=== PATIENT | female | born 2000 | race Caucasian/White ===

== ENCOUNTER 2022-04-17 10:15 | Emergency (ER) | payer SELFPAY ==
[2022-04-17] MEDS ORDERED: LIDOCAINE VISCOUS 2% SOLN 15 ML UDC ONE (10:37)
[2022-04-17] MEDS ORDERED: MAGNES/ALUMIN/SIMET 30ML UCUP ONE (10:37)
[2022-04-17] MEDS ORDERED: NA CHLORIDE 0.9% 1,000 ML ONE (10:38)
[2022-04-17] MEDS ORDERED: FAMOTIDINE 20 MG/2 ML VIAL IV ONE (10:38)
[2022-04-17 10:48] LABS: Urine Blood 1+ (Negative); Urine Glucose Negative (Negative); Urine Protein Negative (Negative); Urine Specific Gravity >=1.030 (1.005-1.030)
[2022-04-17 10:54] LABS: Absolute Lymphocytes (CBC) 2.8 K/uL (0.7-4.9); Hematocrit 36.5 % (36.0-45.0); MCV 83.9 fL (80-100); MPV 7.3 fL (7.6-11.3); RBC Red Blood Cell Count 4.35 M/uL (3.86-4.86)
[2022-04-17 11:28] LABS: Urine Bacteria <20 /HPF (<20); Urine Mucus 1+ /HPF (None Seen); Urine RBC <5 /HPF (None Seen)
[2022-04-17 12:30] LABS: Albumin 3.5 g/dL (3.4-5.0); Bilirubin Total 0.2 mg/dL (0.2-1.0); Potassium 3.7 mmol/L (3.5-5.1); Protein, Total 7.5 g/dL (6.4-8.2)
--- NOTE | 2022-04-17 12:56 | EDPHYS ---
Physician Documentation [facility] Name: Lakshmi Garcia Age: 21 yrs Sex: Female : 2000 Arrival Date: 04/17/2022 Time: 10:19 Bed 16 Private MD: ED Physician Eddie Parada HPI: 04/17 10:34 This 21 yrs old Female presents to ER via EMS with complaints of Abdominal Pain. ms3 10:34 The patient presents with abdominal pain in the epigastric area. ms3 10:34 Onset: The symptoms/episode began/occurred 5 day(s) ago. The symptoms do not radiate. ms3 Associated signs and symptoms: Pertinent negatives: nausea, vomiting, and diarrhea. The symptoms are described as sharp. Modifying factors: The symptoms are alleviated by nothing, the symptoms are aggravated by nothing. Severity of pain: At its worst the pain was moderate in the emergency department the pain is unchanged. 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 - Social history:: Smoking status: Patient reports the use of cigarette tobacco products, denies chronic smoking, but will smoke occasionally. ROS: 10:34 Constitutional: Negative for fever, and chills. Neck: Negative for injury, pain, and ms3 swelling, Cardiovascular: Negative for chest pain, and palpitations. Respiratory: Negative for shortness of breath, cough, wheezing, and pleuritic chest pain. 10:34 MS/Extremity: Negative for injury and deformity, Skin: Negative for injury, rash, and discoloration. 10:34 Abdomen/GI: Positive for abdominal pain. 10:34 All other systems are negative. Exam: 10:34 Constitutional: This is a well developed, well nourished patient who is awake, alert, ms3 and in no acute distress. Neck: Trachea midline, no cervical lymphadenopathy. Supple, full range of motion without nuchal rigidity, or vertebral point tenderness. No Meningismus. Chest/axilla: Normal chest wall appearance and motion. Nontender with no deformity. Cardiovascular: Regular rate and rhythm with a normal S1 and S2. No gallops, murmurs, or rubs. Normal PMI, no JVD. No pulse deficits. Respiratory: Lungs have equal breath sounds bilaterally, clear to auscultation and percussion. No rales, rhonchi or wheezes noted. No increased work of breathing, no retractions or nasal flaring. 10:34 Skin: Warm, dry with normal turgor. Normal color with no rashes, no lesions, and no evidence of cellulitis. MS/ Extremity: Pulses equal, no cyanosis. Neurovascular intact. Full, normal range of motion. Psych: Awake, alert, with orientation to person, place and time. Behavior, mood, and affect are within normal limits. 10:34 Abdomen/GI: Inspection: abdomen appears normal, Bowel sounds: normal, Palpation: mild abdominal tenderness, in the epigastric area. Vital Signs: 10:19 BP 121 / 69; Pulse 60; Resp 12 S; Temp 97.8(A); Pulse Ox 97% on R/A; Weight 72.57 kg jg9 (R); Height 5 ft. 3 in. (160.02 cm) (R); Pain 5/10; 11:30 BP 106 / 74; Pulse 60; Resp 12 S; Pulse Ox 97% on R/A; jg9 12:00 BP 106 / 65; Pulse 65; Resp 16 S; Pulse Ox 94% on R/A; jg9 12:15 BP 107 / 76; Pulse 57; Resp 14 S; Pulse Ox 96% on R/A; jg9 10:19 Body Mass Index 28.34 (72.57 kg, 160.02 cm) jg9 MDM: 10:20 Patient medically screened. ms3 10:34 Differential diagnosis: gastritis, non-specific abd pain, pancreatitis. ms3 12:55 Data reviewed: vital signs, nurses notes. Counseling: I had a detailed discussion with ms3 the patient and/or guardian regarding: the historical points, exam findings, and any diagnostic results supporting the discharge/admit diagnosis, lab results, the need for outpatient follow up, to return to the emergency department if symptoms worsen or persist or if there are any questions or concerns that arise at home. Special discussion: I discussed with the patient/guardian in detail that at this point there is no indication for admission to the hospital. It is understood, however, that if the symptoms persist or worsen the patient needs to return immediately for re-evaluation. ED course: Patient is improved, in NAD, non-toxic appearing, ambulatory in ED, speaking full sentences.. 04/17 10:21 Order name: CBC with Diff; Complete Time: 11:06 ms3 04/17 10:21 Order name: CMP; Complete Time: 12:35 ms3 04/17 10:21 Order name: Lipase; Complete Time: 12:35 ms3 04/17 10:21 Order name: Urine Microscopic Only; Complete Time: 12:35 ms3 04/17 10:48 Order name: Urine Dipstick-Ancillary; Complete Time: 11:06 EDMS 04/17 10:21 Order name: IV Saline Lock; Complete Time: 10:49 ms3 04/17 10:21 Order name: Labs collected and sent; Complete Time: 10:49 ms3 04/17 10:21 Order name: Urine Dipstick-Ancillary (obtain specimen); Complete Time: 10:48 ms3 04/17 10:21 Order name: Urine Test (obtain specimen); Complete Time: 10:48 ms3 Administered Medications: 10:35 Drug: Pepcid (famotidine) 20 mg Route: IVP; Site: left antecubital; jg9 11:03 Follow up: Response: No adverse reaction jg9 10:35 Drug: GI Cocktail without - (Maalox Suspension 30 ml, Lidocaine Liquid 2 % 15 jg9 ml) Route: PO; 11:03 Follow up: Response: No adverse reaction jg9 10:36 Drug: NS 0.9% 1000 ml Route: IV; Rate: 1 bolus; Site: left antecubital; jg9 12:30 Follow up: IV Status: Completed infusion; IV Intake: 1000ml jg9 Point of Care Testing: Urine : 10:55 hCG Reading: Negative; Control Reading: Positive; jg9 Disposition Summary: 04/17/22 12:55 Discharge Ordered Location: Home ms3 Condition: Stable ms3 Diagnosis - Abdominal pain, unspecified ms3 Followup: ms3 - With: Kody Corona, DO - When: 2 - 3 days - Reason: Discharge Instructions: - Discharge Summary Sheet ms3 - Abdominal Pain, Adult ms3 Forms: - Medication Reconciliation Form ms3 - Thank You Letter ms3 - Antibiotic Education ms3 - Prescription Opioid Use ms3 Prescriptions: - Pepcid 20 mg Oral Tablet - take 1 tablet by ORAL route once daily for 10 days; 10 tablet; Refills: 0, ms3 Product Selection Permitted Signatures: Dispatcher [employer] EDEddie Bang DO DO ms3 Jenna Anand RN RN jg9 Corrections: (The following items were deleted from the chart) 10:22 10:22 Allergies: surgical lubricant jelly; jg9 jg9
--- NOTE | 2022-04-17 12:56 | ER ---
Nurse's Notes [facility] Name: Lakshmi Garcia Age: 21 yrs Sex: Female : 2000 Arrival Date: 04/17/2022 Time: 10:19 Bed 16 Private MD: Diagnosis: Abdominal pain, unspecified Presentation: 04/17 10:19 Chief complaint: EMS states: 2-3 months without a menstrual, home test negative here jg9 due to mid lower abdominal pain for several days with no change, no associated symptoms reported. Coronavirus screen: Vaccine status: Patient reports receiving the 2nd dose of the covid vaccine. Ebola Screen: Patient negative for fever greater than or equal to 101.5 degrees Fahrenheit, and additional compatible Ebola Virus Disease symptoms Patient denies exposure to infectious person. Patient denies travel to an Ebola-affected area in the 21 days before illness onset. Initial Sepsis Screen: Does the patient meet any 2 criteria? No. Patient's initial sepsis screen is negative. Does the patient have a suspected source of infection? No. Patient's initial sepsis screen is negative. Risk Assessment: Do you want to hurt yourself or someone else? Patient reports no desire to harm self or others. Patient reports desire/thoughts of hurting themselves or someone else. Provider notified. Onset of symptoms is unknown. 10:19 Method Of Arrival: EMS: [facility] jg9 10:19 Acuity: GLENNA 3 jg9 Triage Assessment: 10:10 General: Appears in no apparent distress. Behavior is calm, cooperative. Pain: jg9 Complains of pain in umbilical area and suprapubic area Pain currently is 5 out of 10 on a pain scale. GI: Reports lower abdominal pain, upper abdominal pain. 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 - Social history:: Smoking status: Patient reports the use of cigarette tobacco products, denies chronic smoking, but will smoke occasionally. Screenin:23 Abuse screen: Denies threats or abuse. Denies injuries from another. Nutritional jg9 screening: No deficits noted. Tuberculosis screening: No symptoms or risk factors identified. Fall Risk None identified. Assessment: 10:24 GI: Bowel sounds present X 4 quads. Abd is soft X 4 quads Abdomen is tender to jg9 palpation in umbilical area and suprapubic area. Vital Signs: 10:19 BP 121 / 69; Pulse 60; Resp 12 S; Temp 97.8(A); Pulse Ox 97% on R/A; Weight 72.57 kg jg9 (R); Height 5 ft. 3 in. (160.02 cm) (R); Pain 5/10; 11:30 BP 106 / 74; Pulse 60; Resp 12 S; Pulse Ox 97% on R/A; jg9 12:00 BP 106 / 65; Pulse 65; Resp 16 S; Pulse Ox 94% on R/A; jg9 12:15 BP 107 / 76; Pulse 57; Resp 14 S; Pulse Ox 96% on R/A; jg9 10:19 Body Mass Index 28.34 (72.57 kg, 160.02 cm) jg9 ED Course: 10:15 Arm band placed on. jg9 10:19 Patient arrived in ED. jg9 10:19 Jenna Anand, RN is Primary Nurse. jg9 10:20 Eddie Parada DO is Attending Physician. ms3 10:21 Triage completed. jg9 10:24 Patient has correct armband on for positive identification. Bed in low position. Call jg9 light in reach. Side rails up X 1. 10:30 Inserted saline lock: 22 gauge in right antecubital area, using aseptic technique. jg9 Blood collected. 11:32 patient provided with supplies to perform ADL's she reports that she has not had a jg9 shower in 3-4 days and is "smelly". 12:41 patient still getting herself cleaned up and dressed. Awaiting disposition. jg9 12:55 Kody Corona DO is Referral Physician. ms3 13:02 No provider procedures requiring assistance completed. jg9 13:05 IV discontinued. jg9 Administered Medications: 10:35 Drug: Pepcid (famotidine) 20 mg Route: IVP; Site: left antecubital; jg9 11:03 Follow up: Response: No adverse reaction jg9 10:35 Drug: GI Cocktail without - (Maalox Suspension 30 ml, Lidocaine Liquid 2 % 15 jg9 ml) Route: PO; 11:03 Follow up: Response: No adverse reaction jg9 10:36 Drug: NS 0.9% 1000 ml Route: IV; Rate: 1 bolus; Site: left antecubital; jg9 12:30 Follow up: IV Status: Completed infusion; IV Intake: 1000ml jg9 Medication: 13:05 VIS not applicable for this client. jg9 Point of Care Testing: Urine : 10:55 hCG Reading: Negative; Control Reading: Positive; jg9 Intake: 12:30 IV: 1000ml; Total: 1000ml. jg9 Outcome: 12:55 Discharge ordered by . ms3 13:02 Discharged to home ambulatory. jg9 13:05 Condition: stable jg9 13:05 Discharge instructions given to patient, Instructed on discharge instructions, follow up and referral plans. Demonstrated understanding of instructions, follow-up care, Prescriptions given X 1. 13:05 Patient left the ED. jg9 Signatures: Eddie Parada DO DO ms3 Jenna Anand, RN RN jg9 Corrections: (The following items were deleted from the chart) 10:22 10:22 Allergies: surgical lubricant jelly; jg9 jg9 12:43 12:15 BP 107 / 76; Pulse 57bpm; Resp 14bpm; Spontaneous; Pulse Ox 96%; jg9 jg9
[2022-04-17 14:08] VITALS: BP 156/93; TEMP 97.1; O2SAT 99
== END 2022-04-17 13:05 | disposition home or self-care (01) ==
LOC: ER 10:15
DX: R10.13 Epigastric pain (principal); F17.210 Nicotine dependence, cigarettes, uncomplicated; Z91.048 Other nonmedicinal substance allergy status
CPT/HCPCS: 36415; 80053; 81003; 81015; 83690; 85025; J7030

== ENCOUNTER 2022-04-20 03:35 | Emergency (ER) | payer SELFPAY ==
[2022-04-20 04:12] LABS: Absolute Lymphocytes (CBC) 3.4 K/uL (0.7-4.9); Hematocrit 36.5 % (36.0-45.0); Lymphocytes % 24.9 % (15.3-44.8); MCV 83.3 fL (80-100); MPV 7.3 fL (7.6-11.3); RBC Red Blood Cell Count 4.38 M/uL (3.86-4.86)
[2022-04-20 04:12] LABS: Urine Blood Negative (Negative); Urine Glucose Negative (Negative); Urine Protein 1+ (Negative); Urine Specific Gravity >=1.030 (1.005-1.030)
[2022-04-20 04:31] LABS: Albumin 3.6 g/dL (3.4-5.0); Bilirubin Total 0.2 mg/dL (0.2-1.0); Potassium 3.7 mmol/L (3.5-5.1); Protein, Total 7.4 g/dL (6.4-8.2)
--- NOTE | 2022-04-20 06:33 | ER ---
Nurse's Notes [facility] Name: Lakshmi Garcia Age: 21 yrs Sex: Female : 2000 Arrival Date: 04/20/2022 Time: 03:37 Bed 15 Private MD: Diagnosis: Abdominal pain, unspecified Presentation: 04/20 03:51 Chief complaint: Patient states: Abdominal pain since 3 months that is not resolving. ke1 Coronavirus screen: Vaccine status: Patient reports receiving the 2nd dose of the covid vaccine. Ebola Screen: No symptoms or risks identified at this time. Initial Sepsis Screen: Does the patient meet any 2 criteria? No. Patient's initial sepsis screen is negative. Does the patient have a suspected source of infection? No. Patient's initial sepsis screen is negative. Risk Assessment: Do you want to hurt yourself or someone else? Patient reports no desire to harm self or others. Onset of symptoms was December 31, 2021. 03:51 Method Of Arrival: Ambulatory [facility] 03:51 Acuity: GLENNA 3 ke1 Triage Assessment: 03:54 General: Appears in no apparent distress. Behavior is appropriate for age. Pain: ke1 Complains of pain in abdomen Pain does not radiate. Pain currently is 4 out of 10 on a pain scale. at worst was 10 out of 10 on a pain scale. level that patient reports is acceptable is 5 out of 10 on a pain scale. GI: Abdomen is obese, Bowel sounds present X 4 quads. Abd is soft X 4 quads Abdomen is tender to palpation in umbilical area. 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 - Social history:: Smoking status: Patient reports the use of cigarette tobacco products, smokes one-half pack cigarettes per day. - Family history:: not pertinent. - Hospitalizations: : No recent hospitalization is reported. Screenin:55 Abuse screen: Denies threats or abuse. Nutritional screening: No deficits noted. ke1 Tuberculosis screening: No symptoms or risk factors identified. Fall Risk None identified. Assessment: 04:09 General: Appears in no apparent distress. uncomfortable, obese, Behavior is ja4 cooperative, anxious. Pain: Complains of pain in abdomen Pain currently is 6 out of 10 on a pain scale. Quality of pain is described as aching. GI: Abdomen is round obese. Vital Signs: 03:51 BP 119 / 77; Pulse 86; Resp 17; Temp 98.3; Pulse Ox 96% ; Weight 77.11 kg; Height 5 ft. ke1 3 in. (160.02 cm); Pain 4/10; 03:51 Body Mass Index 30.11 (77.11 kg, 160.02 cm) ke1 ED Course: 03:37 Patient arrived in ED. ja2 03:37 Jaswant Kincaid MD is Attending Physician. rn 03:53 Maico Diaz, CISCO is Primary Nurse. ja4 03:54 Triage completed. ke1 03:56 Arm band placed on left wrist. ke1 03:56 Bed in low position. Call light in reach. Side rails up X 1. ke1 04:08 CT Abd/Pelvis - IV Contrast Only Sent. ja4 04:09 Inserted saline lock: 20 gauge in left antecubital area, using aseptic technique. Blood ja4 collected. 05:07 CT Abd/Pelvis - IV Contrast Only In Process Unspecified. EDMS Administered Medications: No medications were administered Medication: 04:09 VIS not applicable for this client. ja4 Outcome: 06:32 Discharge ordered by . rn 06:39 Discharged to home ambulatory. ja4 06:39 Condition: good 06:39 Discharge instructions given to patient, Instructed on discharge instructions, follow up and referral plans. Demonstrated understanding of instructions, follow-up care. 06:40 Patient left the ED. 4 Signatures: Dispatcher [employer] EDMS Jaswant Kincaid MD MD rn Alexander, Jessica ja2 Francesco Julian RN RN [facility] Maico Diaz, CISCO RN herve
--- NOTE | 2022-04-20 06:33 | EDPHYS ---
Physician Documentation [facility] Name: Lakshmi Garcia Age: 21 yrs Sex: Female : 2000 Arrival Date: 04/20/2022 Time: 03:37 Bed 15 Private MD: ED Physician Jaswant Kincaid HPI: 04/20 03:50 This 21 yrs old Female presents to ER via Unassigned with complaints of Abdominal Pain. rn 03:50 The patient presents with abdominal pain in the periumbilical area. Onset: The rn symptoms/episode began/occurred 4 month(s) ago. The symptoms do not radiate. Associated signs and symptoms: Pertinent positives: diarrhea, Pertinent negatives: nausea and vomiting, blood in stools, dysuria, fever, hematuria, shortness of breath, vaginal discharge. The symptoms are described as crampy. Modifying factors: The symptoms are alleviated by nothing, the symptoms are aggravated by nothing. Severity of pain: At its worst the pain was moderate in the emergency department the pain has improved. The patient has experienced similar episodes in the past. The patient has been recently seen at the [facility] Emergency Department. Pt reports seen here recently for abd pain, told nothing wrong, comes back for persistent abd pain. No fever/vomiting. + diarrhea. Reports taking more than 10 tests and all negative but "doesn't believe them". Significant other reports pain present for 4-5 months. No vomiting. No fever. . 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 - Social history:: Smoking status: Patient reports the use of cigarette tobacco products, smokes one-half pack cigarettes per day. - Family history:: not pertinent. - Hospitalizations: : No recent hospitalization is reported. ROS: 03:50 Constitutional: Negative for fever, chills, and weight loss, Eyes: Negative for injury, rn pain, redness, and discharge, Neck: Negative for injury, pain, and swelling, Cardiovascular: Negative for chest pain, palpitations, and edema, Respiratory: Negative for shortness of breath, cough, wheezing, and pleuritic chest pain, Abdomen/GI: Negative for nausea, vomiting, and constipation, Back: Negative for injury and pain, : Negative for injury, bleeding, discharge, and swelling, MS/Extremity: Negative for injury and deformity, Skin: Negative for injury, rash, and discoloration, Neuro: Negative for headache, weakness, numbness, tingling, and seizure. Exam: 03:50 Constitutional: Overweight female, no acute distress, ambulatory to room without rn difficulty Head/Face: Normocephalic, atraumatic. Cardiovascular: Regular rate and rhythm. No pulse deficits. Respiratory: No increased work of breathing, no retractions or nasal flaring. Abdomen/GI: soft, mild periumbilical tenderness, no rebound Skin: Warm, dry MS/ Extremity: Pulses equal, no cyanosis. Neuro: Awake and alert, GCS 15 Vital Signs: 03:51 BP 119 / 77; Pulse 86; Resp 17; Temp 98.3; Pulse Ox 96% ; Weight 77.11 kg; Height 5 ft. ke1 3 in. (160.02 cm); Pain 4/10; 03:51 Body Mass Index 30.11 (77.11 kg, 160.02 cm) ke1 MDM: 03:37 Patient medically screened. rn 06:31 Differential diagnosis: diverticulitis, Endometriosis, gastritis, non-specific abd rn pain, pancreatitis, Ureterolithiasis. Data reviewed: vital signs, nurses notes, lab test result(s), radiologic studies, CT scan, and as a result, I will discharge patient. Counseling: I had a detailed discussion with the patient and/or guardian regarding: the historical points, exam findings, and any diagnostic results supporting the discharge/admit diagnosis, lab results, radiology results, the need for outpatient follow up, to return to the emergency department if symptoms worsen or persist or if there are any questions or concerns that arise at home. Special discussion: Based on the patient's Hx, exam, and Dx evaluation, there is no indication for emergent surgery or inpatient Tx. It is understood by the patient/guardian that if the Sx's persist or worsen they need to return immediately for re-evaluation. I discussed with the patient/guardian in detail that at this point there is no indication for admission to the hospital. It is understood, however, that if the symptoms persist or worsen the patient needs to return immediately for re-evaluation. ED course: No acute findings on ct abdomen, no abnormal findings on bloodwork to indicate emergent cause of her 4-5 month long abd pain symptoms. Will dc home with return precautions and recommend GI f/u if persists. 04/20 03:50 Order name: CBC with Diff; Complete Time: 04:16 rn 04/20 03:50 Order name: CMP; Complete Time: 04:40 rn 04/20 03:50 Order name: Lipase; Complete Time: 04:40 rn 04/20 03:50 Order name: CT Abd/Pelvis - IV Contrast Only rn 04/20 04:12 Order name: Urine Dipstick-Ancillary; Complete Time: 04:16 EDCT 04/20 03:50 Order name: IV Saline Lock; Complete Time: 04:09 rn 04/20 03:50 Order name: Labs collected and sent; Complete Time: 04:09 rn 04/20 03:50 Order name: Urine Test (obtain specimen); Complete Time: 04:09 rn Administered Medications: No medications were administered Disposition Summary: 04/20/22 06:32 Discharge Ordered Location: Home rn Problem: an ongoing problem rn Symptoms: have improved rn Condition: Stable rn Diagnosis - Abdominal pain, unspecified rn Followup: rn - With: Private Physician - When: As needed - Reason: Recheck today's complaints, Re-evaluation by your physician Discharge Instructions: - Discharge Summary Sheet rn - Abdominal Pain, Adult rn - Pain Without a Known Cause rn Forms: - Medication Reconciliation Form rn - Thank You Letter rn - Antibiotic rn forensic - Prescription Opioid Use rn Signatures: Dispatcher [employer] Jaswant Mattson MD MD rn Ebrottie, Kouassi RN RN ke1
[2022-04-20 06:56] VITALS: BP 119/77; TEMP 98.3; O2SAT 96
--- NOTE | 2022-04-20 09:29 | RAD REPORT ---
EXAM DESCRIPTION: CT - Abdomen Pelvis W Contrast - 04/20/2022 7:20 am CLINICAL HISTORY: 21 years Female Abdominal pain, acute, nonlocalized TECHNIQUE: Axial CT imaging of the abdomen and pelvis was performed following the administration of intravenous contrast.. Oral contrast was not administered. Sagittal and coronal reconstructed image s were then performed. The CT study is performed according to ALARA (as low as reasonably achievabl e) or ALARA/IMAGE GENTLY, with automatic adjustment of mA and/or kV according to patient size. Performed on: 04/20/2022 at 5:02 AM. COMPARISON: None FINDINGS: Lung bases: The lung bases are clear. Liver: The liver measures approximately 19 cm in craniocaudal dimension. No focal hepatic abnormaliti es are identified. There is diffusely decreased attenuation of the liver commonly due to fatty infilt ration. The portal veins are patent. Spleen: The spleen is normal is size, configuration and attenuation. Gallbladder and bile duct: The gallbladder is moderately contracted on this examination. There is n o biliary ductal dilatation. Pancreas: The pancreas is grossly normal in size and configuration. Adrenal Glands: The adrenal glands are normal in size and configuration. Kidneys: The kidneys are normal in size and configuration. There is no evidence of hydronephrosis. Th ere is no evidence of nephrolithiasis. No definite solid or cystic renal mass lesions are identified. Stomach: The stomach is grossly normal. There is no definite hiatal hernia. Bowel: The bowel gas pattern is non specific and non obstructive. Appendix: The appendix is normal. Free air: There is no evidence of free air. Free fluid: There is no evidence of free fluid. Vasculature: The aorta is normal in caliber and contour. The inferior vena cava is grossly unremarkab le. Lymphadenopathy: There are mildly prominent mesenteric lymph nodes within the right lower quadrant wh ich are nonspecific but can be seen with mesenteric adenitis. Bladder: The bladder is decompressed on this examination. Reproductive: The uterus is grossly within normal limits. Bones: No acute osseous abnormalities are identified. Incidentally noted is a limbus vertebrae along the anterior superior endplate of L4. Soft tissues: No acute soft tissue abnormalities are identified. IMPRESSION: 1. No evidence of acute intra-abdominal or intrapelvic pathology. 2. There are mildly prominent mesenteric lymph nodes within the right lower quadrant which are nons pecific but can be seen with mesenteric adenitis. 3. Mild hepatomegaly with diffusely decreased attenuation of the liver commonly due to fatty infilt ration. 4. No evidence of appendicitis, urinary tract obstruction or acute gallbladder pathology. Electronically signed by: Jade Ross DO 04/20/2022 6:20 AM CDT Due to temporary technical issues with the PACS/Fluency reporting system, reports are being signed by the in house radiologists without review as a courtesy to insure prompt reporting. The interpreting radiologist is fully responsible for the content of the report.
== END 2022-04-20 06:40 | disposition home or self-care (01) ==
LOC: ER 03:35
DX: R10.9 Unspecified abdominal pain (principal); R19.7 Diarrhea, unspecified; F17.210 Nicotine dependence, cigarettes, uncomplicated; Z91.048 Other nonmedicinal substance allergy status
CPT/HCPCS: 36415; 74177; 80053; 81003; 83690; 85025; 99283; Q9967